=== PATIENT | female | born 1990 | race Caucasian/White ===

== ENCOUNTER 2017-02-11 21:32 | Emergency (ER) | payer BC ==
[~2017-02-11] VITALS: Ht 152.4 cm; Wt 74.0 kg
[2017-02-12] MEDS ORDERED: ALBUTEROL (0.083%) 2.5MG/3ML NEB HHN STA (00:14)
[2017-02-12 00:33] LABS: BASOPHILS % 0.9 % (0.0-2.0); EOSINOPHILS % 1.8 % (0.0-5.0); HEMATOCRIT. 39.7 % (36.0-48.0); HEMOGLOBIN. 13.3 g/dL (12.0-16.0); LYMPHOCYTES % 34.8 % (20.0-50.0); MEAN CORPUSCULAR HEMOGLOBIN 27.8 pg (28.0-32.0); MEAN CORPUSCULAR VOLUME 82.9 fL (81.0-99.0); MEAN PLATELET VOLUME 8.7 fl (7.4-10.4); MONOCYTES % 8.2 % (2.0-8.0); NEUTROPHILS % 54.3 % (40.0-76.0); PLATELET 272 x1000/uL (130-400); RED BLOOD CELL COUNT 4.79 mill/uL (4.2-5.4); RED CELL DISTRIBUTION WIDTH 13.7 % (11.6-14.6)
[2017-02-12 00:41] LABS: PROTHROMBIN TIME 10.1 sec (9.4-11.6)
[2017-02-12 00:42] LABS: CHLORIDE 107 mEq/L (98-107)
[2017-02-12 00:43] LABS: HCG SCREEN NEGATIVE
[2017-02-12 00:50] LABS: CARBON DIOXIDE 27 mEq/L (21-32)
[2017-02-12 04:20] VITALS: BP 121/76
== END 2017-02-12 04:20 | disposition home or self-care (01) ==
LOC: ER 21:32
DX: J06.9 Acute upper respiratory infection, unspecified (principal); Z98.890 Other specified postprocedural states
CPT/HCPCS: 36415; 71010; 80053; 84703; 85025; 85610; 94640; 99285; J7611

== ENCOUNTER 2020-10-16 03:00 | Emergency (ER) | payer BC, SELFPAY ==
[~2020-10-16] VITALS: Ht 157.5 cm; Wt 66.0 kg
[2020-10-16] MEDS ORDERED: ACETAMINOPHEN 325MG TABLET PO STA (03:27)
[2020-10-16] MEDS ORDERED: AZITHROMYCIN 500 MG in DEXT 5% WATER 250 ML IV ONE (03:30)
[2020-10-16] MEDS ORDERED: CEFTRIAXONE 1 G PREMIX 50 ML IV ONE (03:30)
[2020-10-16] MEDS ORDERED: SODIUM CHLORIDE 0.9% 1,000 ML IV ONE ×2 (03:30)
[2020-10-16 03:45] LABS: BASOPHILS % 0.5 % (0.0-2.0); EOSINOPHILS % 0.1 % (0.0-5.0); HEMOGLOBIN. 14.4 g/dL (12.0-16.0); LYMPHOCYTES % 22.8 % (20.0-50.0); MEAN CORPUSCULAR VOLUME 81.5 fL (81.0-99.0); MEAN PLATELET VOLUME 8.7 fl (7.4-10.4); MONOCYTES % 3.8 % (2.0-8.0); NEUTROPHILS % 72.8 % (40.0-76.0); PLATELET 208 x1000/uL (130-400); RED BLOOD CELL COUNT 5.15 mill/uL (4.2-5.4); RED CELL DISTRIBUTION WIDTH 13.8 % (11.6-14.6)
[2020-10-16 03:57] LABS: CHLORIDE 105 mEq/L (98-107)
[2020-10-16] MEDS ORDERED: BENZ-16 MT (05:21)
[2020-10-16] MEDS ORDERED: AZIT250T12 MT (05:21)
[2020-10-16 05:47] VITALS: BP 134/96
== END 2020-10-16 05:52 | disposition home or self-care (01) ==
LOC: ER 03:00
DX: U07.1 COVID-19 (principal); J12.82 Pneumonia due to coronavirus disease 2019
CPT/HCPCS: 36415; 71045; 80053; 83605; 85025; 85379; 87040; 96365; 99284; J0456; J0696; J7030; J7060